=== PATIENT | male | born 1935 | race Caucasian/White ===

== ENCOUNTER 2023-01-22 11:53 | Inpatient (IN) | payer MEDICARE, BC ==
[2023-01-22] MEDS ORDERED: Acetaminophen W/ Codeine 5 ML UDCUP PER TUBE PRN (13:04)
[2023-01-22] MEDS ORDERED: Cyclobenzaprine 10 MG TAB PO PRN (13:04)
[2023-01-22] MEDS ORDERED: Potassium Chloride 20 MEQ TAB PO PRN (13:04)
[2023-01-22] MEDS ORDERED: Ondansetron ODT 4 MG TAB PO PRN (18:23)
[2023-01-22] MEDS ORDERED: Prochlorperazine Maleate 5 MG TAB PO PRN (18:23)
[2023-01-22] MEDS: Famotidine 20 MG TAB PER TUBE SCH (20:40)
[2023-01-22] MEDS: Acetaminophen 325 MG TAB PER TUBE PRN (20:45)
[2023-01-22] MEDS ORDERED: clonazePAM 1 MG TAB PO SCH (21:00)
[2023-01-22] MEDS ORDERED: Apixaban 5 MG TAB PO SCH (21:00)
[2023-01-22] MEDS ORDERED: Carvedilol 6.25 MG TAB PO SCH (21:00)
[2023-01-22] MEDS: Melatonin 3 MG TAB PER TUBE PRN (22:14)
[2023-01-22] MEDS: Acetaminophen/Codeine 30-300mg Tablet PER TUBE PRN (23:21)
[2023-01-23] MEDS: traMADol HCl 50 MG TAB PER TUBE PRN ×2 (01:47→10:34)
[2023-01-23] MEDS ORDERED: Ondansetron ODT 4 MG TAB PER TUBE PRN (02:14)
[2023-01-23] MEDS ORDERED: Prochlorperazine Maleate 5 MG TAB PER TUBE PRN (02:14)
[2023-01-23] MEDS: Levothyroxine Sodium 75 MCG TAB PER TUBE SCH (05:40)
[2023-01-23 05:50] LABS: #Basophils 0.1 thou/uL (0.0-0.2); #Eosinphils 0.1 thou/uL (0.0-0.7); #Lymphocytes 0.4 thou/uL (1.20-3.40); #Monocytes 0.8 thou/uL (0.11-0.59); #Neutrophils 5.9 thou/uL (1.40-6.50); %Basophils 1.4 % (0.0-1.0); %Lymphocytes 4.9 % (21.0-51.0); %Monocytes 11.3 % (0.0-10.0); %Neutrophils 80.4 % (42.0-75.0); Hemoglobin 9.3 g/dL (14.0-18.0); Mean Corpuscular HGB CONC 32.5 g/dL (32.0-36.0); Mean Corpuscular Hemoglobin 33.9 pg (27.0-31.0); Mean Platelet Volume 7.3 fL (7.4-10.4); Platelet Count 98 10x3/uL (130-400); RBC Distribution Width 14.2 % (11.5-14.5); Red Blood Cell (RBC) Count 2.75 mill/uL (4.70-6.10); White Blood Cell (WBC) Count 7.4 10x3/uL (4.8-10.8)
[2023-01-23] MEDS ORDERED: Levothyroxine Sodium 75 MCG TAB PO SCH (06:00)
[2023-01-23 06:01] LABS: ALT (SGPT) 21 U/L (8-55); AST (SGOT) 18 U/L (5-34); Albumin 2.6 g/dL (3.4-4.8); Alkaline Phosphatase 102 U/L (40-110); Anion Gap 14 mmol/L (10-20); BUN (Urea Nitrogen) 21 mg/dL (8.4-25.7); Bilirubin, Total 0.7 mg/dL (0.2-1.2); Calc. Creatinine Clearance 95 mL/min (70-130); Calcium 8.2 mg/dL (7.8-10.44); Carbon Dioxide 22 mmol/L (23-31); Chloride 103 mmol/L (98-107); Estimated GFR 95; Globulin 2.1 g/dL (2.4-3.5); Glucose 122 mg/dL (83-110); Potassium 3.9 mmol/L (3.5-5.1); Protein, Total 4.7 g/dL (5.8-8.1); Sodium 135 mmol/L (136-145)
[2023-01-23] MEDS ORDERED: Liothyronine Sodium 5 MCG TAB PO SCH (09:00)
[2023-01-23] MEDS ORDERED: Haloperidol 1 MG TAB PO SCH (09:00)
[2023-01-23] MEDS ORDERED: Polyethylene Glycol 3350 17 GM Packet PO SCH (09:00)
[2023-01-23] MEDS: Apixaban 5 MG TAB PER TUBE SCH ×2 (09:29→21:10)
[2023-01-23] MEDS: Carvedilol 6.25 MG TAB PER TUBE SCH ×2 (09:30→21:11)
[2023-01-23] MEDS: Famotidine 20 MG TAB PER TUBE SCH ×2 (09:35→21:10)
[2023-01-23] MEDS: Haloperidol 1 MG TAB PER TUBE SCH (09:36)
[2023-01-23] MEDS: Liothyronine Sodium 5 MCG TAB PER TUBE SCH (09:36)
[2023-01-23] MEDS: Polyethylene Glycol 3350 17 GM Packet PER TUBE SCH (09:37)
[2023-01-23] MEDS: Acetaminophen/Codeine 30-300mg Tablet PER TUBE PRN (14:01)
[2023-01-23] MEDS ORDERED: Atorvastatin Calcium 40 MG TAB PO SCH (21:00)
[2023-01-23] MEDS: Cyclobenzaprine 10 MG TAB PER TUBE PRN (21:10)
[2023-01-23] MEDS: clonazePAM 1 MG TAB PER TUBE SCH (21:10)
[2023-01-23] MEDS: Melatonin 3 MG TAB PER TUBE PRN (21:10)
[2023-01-23] MEDS: Atorvastatin Calcium 40 MG TAB PER TUBE SCH (21:16)
[2023-01-24] MEDS: Acetaminophen/Codeine 30-300mg Tablet PER TUBE PRN ×2 (00:04→05:40)
[2023-01-24] MEDS: Levothyroxine Sodium 75 MCG TAB PER TUBE SCH (05:41)
[2023-01-24] MEDS: Carvedilol 6.25 MG TAB PER TUBE SCH ×2 (08:17→20:42)
[2023-01-24] MEDS: Apixaban 5 MG TAB PER TUBE SCH ×2 (08:37→20:42)
[2023-01-24] MEDS: Famotidine 20 MG TAB PER TUBE SCH ×2 (08:37→20:42)
[2023-01-24] MEDS: Polyethylene Glycol 3350 17 GM Packet PER TUBE SCH (08:37)
[2023-01-24] MEDS: Liothyronine Sodium 5 MCG TAB PER TUBE SCH (08:37)
[2023-01-24] MEDS: Haloperidol 1 MG TAB PER TUBE SCH (08:39)
[2023-01-24] MEDS ORDERED: Sodium Chloride 0.9% 1,000 ML IV SCH (10:15)
[2023-01-24] MEDS ORDERED: Carvedilol 6.25 MG TAB PER TUBE SCH ×2 (11:59→12:30)
[2023-01-24] MEDS: traMADol HCl 50 MG TAB PER TUBE PRN ×2 (13:03→20:40)
[2023-01-24] MEDS: Melatonin 3 MG TAB PER TUBE PRN (20:40)
[2023-01-24] MEDS: clonazePAM 1 MG TAB PER TUBE SCH (20:41)
[2023-01-24] MEDS: Cyclobenzaprine 10 MG TAB PER TUBE PRN (20:42)
[2023-01-25] MEDS: Levothyroxine Sodium 75 MCG TAB PER TUBE SCH (06:11)
[2023-01-25] MEDS: traMADol HCl 50 MG TAB PER TUBE PRN ×2 (06:11→14:37)
[2023-01-25] MEDS: Famotidine 20 MG TAB PER TUBE SCH ×2 (08:34→20:43)
[2023-01-25] MEDS: Apixaban 5 MG TAB PER TUBE SCH ×2 (08:34→20:44)
[2023-01-25] MEDS: Liothyronine Sodium 5 MCG TAB PER TUBE SCH (08:34)
[2023-01-25] MEDS: Polyethylene Glycol 3350 17 GM Packet PER TUBE SCH (08:34)
[2023-01-25] MEDS: Haloperidol 1 MG TAB PER TUBE SCH (08:34)
[2023-01-25] MEDS: Carvedilol 6.25 MG TAB PER TUBE SCH ×2 (08:35→20:40)
[2023-01-25] MEDS: Atorvastatin Calcium 40 MG TAB PER TUBE SCH (20:43)
[2023-01-25] MEDS: DARIDOREXANT HCL PO SCH (20:44)
[2023-01-25] MEDS: clonazePAM 1 MG TAB PER TUBE SCH (20:44)
[2023-01-26] MEDS: traMADol HCl 50 MG TAB PER TUBE PRN ×3 (02:44→20:48)
[2023-01-26] MEDS: Levothyroxine Sodium 75 MCG TAB PER TUBE SCH (05:57)
[2023-01-26 06:14] LABS: #Basophils 0.1 thou/uL (0.0-0.2); #Eosinphils 0.1 thou/uL (0.0-0.7); #Lymphocytes 0.3 thou/uL (1.20-3.40); #Monocytes 1.2 thou/uL (0.11-0.59); #Neutrophils 7.3 thou/uL (1.40-6.50); %Basophils 1.3 % (0.0-1.0); %Eosinophils 1.6 % (0.0-10.0); %Lymphocytes 3.6 % (21.0-51.0); %Monocytes 13.6 % (0.0-10.0); Hemoglobin 9.3 g/dL (14.0-18.0); Mean Corpuscular HGB CONC 32.3 g/dL (32.0-36.0); Mean Platelet Volume 6.6 fL (7.4-10.4); Platelet Count 160 10x3/uL (130-400); RBC Distribution Width 14.6 % (11.5-14.5); Red Blood Cell (RBC) Count 2.74 mill/uL (4.70-6.10); White Blood Cell (WBC) Count 9.1 10x3/uL (4.8-10.8)
[2023-01-26 06:16] LABS: Anion Gap 14 mmol/L (10-20); BUN (Urea Nitrogen) 20 mg/dL (8.4-25.7); Calc. Creatinine Clearance 105 mL/min (70-130); Calcium 8.4 mg/dL (7.8-10.44); Carbon Dioxide 23 mmol/L (23-31); Chloride 99 mmol/L (98-107); Estimated GFR 97; Glucose 95 mg/dL (83-110); Potassium 4.6 mmol/L (3.5-5.1); Sodium 131 mmol/L (136-145)
[2023-01-26] MEDS: Carvedilol 6.25 MG TAB PER TUBE SCH ×2 (07:19→20:47)
[2023-01-26] MEDS: Polyethylene Glycol 3350 17 GM Packet PER TUBE SCH (07:20)
[2023-01-26] MEDS: Famotidine 20 MG TAB PER TUBE SCH ×2 (07:20→20:46)
[2023-01-26] MEDS: Liothyronine Sodium 5 MCG TAB PER TUBE SCH (07:20)
[2023-01-26] MEDS: Haloperidol 1 MG TAB PER TUBE SCH (07:20)
[2023-01-26] MEDS: Acetaminophen/Codeine 30-300mg Tablet PER TUBE PRN ×2 (07:21→13:58)
[2023-01-26] MEDS: Apixaban 5 MG TAB PER TUBE SCH ×2 (07:21→20:47)
[2023-01-26] MEDS: Cyclobenzaprine 10 MG TAB PER TUBE PRN (10:08)
[2023-01-26] MEDS ORDERED: Senokot S 8.6-50 MG TAB PO PRN (17:29)
[2023-01-26] MEDS: clonazePAM 1 MG TAB PER TUBE SCH (20:46)
[2023-01-26] MEDS: DARIDOREXANT HCL PO SCH (20:47)
[2023-01-27] MEDS: traMADol HCl 50 MG TAB PER TUBE PRN ×3 (05:55→17:41)
[2023-01-27] MEDS: Levothyroxine Sodium 75 MCG TAB PER TUBE SCH (05:55)
[2023-01-27] MEDS: Famotidine 20 MG TAB PER TUBE SCH ×2 (08:39→20:26)
[2023-01-27] MEDS: Polyethylene Glycol 3350 17 GM Packet PER TUBE SCH (08:39)
[2023-01-27] MEDS: Haloperidol 1 MG TAB PER TUBE SCH (08:39)
[2023-01-27] MEDS: Liothyronine Sodium 5 MCG TAB PER TUBE SCH (08:39)
[2023-01-27] MEDS: Acetaminophen/Codeine 30-300mg Tablet PER TUBE PRN ×2 (08:40→14:47)
[2023-01-27] MEDS: Apixaban 5 MG TAB PER TUBE SCH ×2 (08:40→20:25)
[2023-01-27] MEDS: Carvedilol 6.25 MG TAB PER TUBE SCH ×2 (08:41→20:26)
[2023-01-27] MEDS: clonazePAM 1 MG TAB PER TUBE SCH (20:25)
[2023-01-27] MEDS: DARIDOREXANT HCL PO SCH (20:26)
[2023-01-27] MEDS: Atorvastatin Calcium 40 MG TAB PER TUBE SCH (20:27)
[2023-01-28] MEDS: Melatonin 3 MG TAB PER TUBE PRN ×2 (01:19→23:07)
[2023-01-28] MEDS: traMADol HCl 50 MG TAB PER TUBE PRN ×2 (01:19→21:00)
[2023-01-28] MEDS: Levothyroxine Sodium 75 MCG TAB PER TUBE SCH (05:56)
[2023-01-28 06:43] LABS: Anion Gap 13 mmol/L (10-20); BUN (Urea Nitrogen) 20 mg/dL (8.4-25.7); Calc. Creatinine Clearance 96 mL/min (70-130); Calcium 8.4 mg/dL (7.8-10.44); Carbon Dioxide 26 mmol/L (23-31); Chloride 96 mmol/L (98-107); Estimated GFR 94; Glucose 95 mg/dL (83-110); Potassium 4.6 mmol/L (3.5-5.1); Sodium 130 mmol/L (136-145)
[2023-01-28] MEDS: Polyethylene Glycol 3350 17 GM Packet PER TUBE SCH (09:10)
[2023-01-28] MEDS: Acetaminophen/Codeine 30-300mg Tablet PER TUBE PRN ×2 (09:10→15:48)
[2023-01-28] MEDS: Haloperidol 1 MG TAB PER TUBE SCH (09:11)
[2023-01-28] MEDS: Liothyronine Sodium 5 MCG TAB PER TUBE SCH (09:11)
[2023-01-28] MEDS: Famotidine 20 MG TAB PER TUBE SCH ×2 (09:11→20:53)
[2023-01-28] MEDS: Apixaban 5 MG TAB PER TUBE SCH ×2 (09:11→20:56)
[2023-01-28] MEDS: Carvedilol 6.25 MG TAB PER TUBE SCH ×2 (09:13→20:56)
[2023-01-28] MEDS: clonazePAM 1 MG TAB PER TUBE SCH (20:54)
[2023-01-28] MEDS: Fluticasone Propionate Nasal Spray 16 gm Bottle NASAL SCH (20:57)
[2023-01-28] MEDS: DARIDOREXANT HCL PO SCH (20:57)
[2023-01-29] MEDS: Acetaminophen/Codeine 30-300mg Tablet PER TUBE PRN ×2 (00:24→07:52)
[2023-01-29] MEDS: traMADol HCl 50 MG TAB PER TUBE PRN ×2 (04:04→11:08)
[2023-01-29] MEDS: Cyclobenzaprine 10 MG TAB PER TUBE PRN ×3 (04:04→20:58)
[2023-01-29] MEDS: Levothyroxine Sodium 75 MCG TAB PER TUBE SCH (05:56)
[2023-01-29 06:09] LABS: Anion Gap 16 mmol/L (10-20); BUN (Urea Nitrogen) 20 mg/dL (8.4-25.7); Calc. Creatinine Clearance 94 mL/min (70-130); Calcium 8.7 mg/dL (7.8-10.44); Carbon Dioxide 23 mmol/L (23-31); Chloride 95 mmol/L (98-107); Estimated GFR 94; Glucose 116 mg/dL (83-110); Potassium 4.4 mmol/L (3.5-5.1); Sodium 130 mmol/L (136-145)
[2023-01-29] MEDS: Polyethylene Glycol 3350 17 GM Packet PER TUBE SCH (07:50)
[2023-01-29] MEDS: Carvedilol 6.25 MG TAB PER TUBE SCH ×2 (07:51→20:59)
[2023-01-29] MEDS: Famotidine 20 MG TAB PER TUBE SCH ×2 (07:51→20:58)
[2023-01-29] MEDS: Haloperidol 1 MG TAB PER TUBE SCH (07:51)
[2023-01-29] MEDS: Apixaban 5 MG TAB PER TUBE SCH ×2 (07:51→20:58)
[2023-01-29] MEDS: Liothyronine Sodium 5 MCG TAB PER TUBE SCH (07:51)
[2023-01-29] MEDS: Fluticasone Propionate Nasal Spray 16 gm Bottle NASAL SCH (20:51)
[2023-01-29] MEDS: Acetaminophen 325 MG TAB PER TUBE PRN (20:55)
[2023-01-29] MEDS: clonazePAM 1 MG TAB PER TUBE SCH (20:58)
[2023-01-29] MEDS: Atorvastatin Calcium 40 MG TAB PER TUBE SCH (21:20)
[2023-01-29] MEDS: DARIDOREXANT HCL PO SCH (21:21)
[2023-01-30] MEDS: Levothyroxine Sodium 75 MCG TAB PER TUBE SCH (05:42)
[2023-01-30] MEDS: HYDROcodone/Acetaminophen 5/325 mg Tablet PO PRN (08:26)
[2023-01-30] MEDS: Polyethylene Glycol 3350 17 GM Packet PER TUBE SCH (09:07)
[2023-01-30] MEDS: Apixaban 5 MG TAB PER TUBE SCH ×2 (09:07→20:30)
[2023-01-30] MEDS: Liothyronine Sodium 5 MCG TAB PER TUBE SCH (09:07)
[2023-01-30] MEDS: Carvedilol 6.25 MG TAB PER TUBE SCH ×2 (09:07→20:32)
[2023-01-30] MEDS: Haloperidol 1 MG TAB PER TUBE SCH (09:07)
[2023-01-30] MEDS: Famotidine 20 MG TAB PER TUBE SCH ×2 (09:07→20:30)
[2023-01-30] MEDS: Fluticasone Propionate Nasal Spray 16 gm Bottle NASAL SCH (20:28)
[2023-01-30] MEDS: traMADol HCl 50 MG TAB PER TUBE PRN (20:30)
[2023-01-30] MEDS: Cyclobenzaprine 10 MG TAB PER TUBE PRN (20:30)
[2023-01-30] MEDS: clonazePAM 1 MG TAB PER TUBE SCH (20:30)
[2023-01-30] MEDS: DARIDOREXANT HCL PO SCH (20:53)
[2023-01-31 04:09] VITALS: BMI 23.6
[2023-01-31] MEDS: Levothyroxine Sodium 75 MCG TAB PER TUBE SCH (05:48)
[2023-01-31] MEDS: traMADol HCl 50 MG TAB PER TUBE PRN (05:52)
[2023-01-31 06:18] LABS: Anion Gap 14 mmol/L (10-20); BUN (Urea Nitrogen) 23 mg/dL (8.4-25.7); Calc. Creatinine Clearance 99 mL/min (70-130); Calcium 8.3 mg/dL (7.8-10.44); Carbon Dioxide 23 mmol/L (23-31); Chloride 96 mmol/L (98-107); Estimated GFR 95; Glucose 107 mg/dL (83-110); Potassium 4.6 mmol/L (3.5-5.1); Sodium 128 mmol/L (136-145)
[2023-01-31 06:28] LABS: #Basophils 0.2 thou/uL (0.0-0.2); #Eosinphils 0.1 thou/uL (0.0-0.7); #Lymphocytes 0.6 thou/uL (1.20-3.40); #Monocytes 1.2 thou/uL (0.11-0.59); #Neutrophils 9.7 thou/uL (1.40-6.50); %Basophils 1.4 % (0.0-1.0); %Eosinophils 0.5 % (0.0-10.0); %Lymphocytes 4.9 % (21.0-51.0); %Monocytes 10.3 % (0.0-10.0); %Neutrophils 82.9 % (42.0-75.0); Hemoglobin 8.6 g/dL (14.0-18.0); Mean Corpuscular HGB CONC 32.1 g/dL (32.0-36.0); Mean Corpuscular Hemoglobin 33.6 pg (27.0-31.0); Mean Platelet Volume 6.4 fL (7.4-10.4); Platelet Count 194 10x3/uL (130-400); RBC Distribution Width 14.7 % (11.5-14.5); Red Blood Cell (RBC) Count 2.57 mill/uL (4.70-6.10); White Blood Cell (WBC) Count 11.7 10x3/uL (4.8-10.8)
[2023-01-31] MEDS: Liothyronine Sodium 5 MCG TAB PER TUBE SCH (09:05)
[2023-01-31] MEDS: Apixaban 5 MG TAB PER TUBE SCH (09:05)
[2023-01-31] MEDS: Polyethylene Glycol 3350 17 GM Packet PER TUBE SCH (09:05)
[2023-01-31] MEDS: Haloperidol 1 MG TAB PER TUBE SCH (09:05)
[2023-01-31] MEDS: Cyclobenzaprine 10 MG TAB PER TUBE PRN ×2 (09:06→16:12)
[2023-01-31] MEDS: Famotidine 20 MG TAB PER TUBE SCH (09:06)
[2023-01-31] MEDS: Carvedilol 6.25 MG TAB PER TUBE SCH (09:06)
[2023-01-31] MEDS: HYDROcodone/Acetaminophen 5/325 mg Tablet PO PRN (12:01)
[2023-01-31 17:56] LABS: Bilirubin Negative (Negative); Blood, Urine Negative (Negative); Clarity Clear (Clear); Glucose, Urine (Dipstick) Negative (Negative); Ketone, Urine Negative (Negative); Leukocyte Negative (Negative); Nitrite Negative (Negative); Protein, Urine (Dipstick) Trace mg/dL (Neg-Trace); Specific Gravity, Urine 1.015 (1.005-1.030)
[2023-01-31 17:57] LABS: Bacteria/HPF None Seen HPF (None Seen); RBC/HPF None Seen HPF (0-3); Squamous Epithelial None Seen HPF (0-3); WBC/HPF None Seen HPF (0-3)
[2023-01-31 21:07] VITALS: TEMP 100.7
[2023-01-31 21:37] VITALS: BP 80/58
== END 2023-01-31 18:58 | disposition critical access hospital (66) | DRG 560 ==
LOC: NAV ACUTE 17:48
PROVIDERS: ADMIT Family Medicine; ATTEND Family Medicine
DX: S72.141D Displaced intertrochanteric fracture of right femur, subsequent encounter for closed fracture with routine healing (principal); E87.1 Hypo-osmolality and hyponatremia; F03.918 Unspecified dementia, unspecified severity, with other behavioral disturbance; G47.00 Insomnia, unspecified; I48.91 Unspecified atrial fibrillation; I25.10 Atherosclerotic heart disease of native coronary artery without angina pectoris; I10 Essential (primary) hypertension; E78.5 Hyperlipidemia, unspecified; K21.9 Gastro-esophageal reflux disease without esophagitis; E03.9 Hypothyroidism, unspecified; R41.0 Disorientation, unspecified; M10.9 Gout, unspecified; M19.90 Unspecified osteoarthritis, unspecified site; W19.XXXD Unspecified fall, subsequent encounter; D69.6 Thrombocytopenia, unspecified; D72.829 Elevated white blood cell count, unspecified; I95.9 Hypotension, unspecified; Z95.5 Presence of coronary angioplasty implant and graft; Z95.0 Presence of cardiac pacemaker; Z90.49 Acquired absence of other specified parts of digestive tract; Z85.01 Personal history of malignant neoplasm of esophagus; Z98.890 Other specified postprocedural states
CPT/HCPCS: 36415; 71045; 80048; 80053; 81001; 85025; 87086; J7050; Q0162

== ENCOUNTER 2023-01-31 19:09 | Emergency (ER) | payer MEDICARE, BC ==
[2023-01-31] MEDS ORDERED: Digoxin 0.5 MG/2 ML AMP ONE ×2 (19:24→21:58)
[2023-01-31] MEDS ORDERED: Sodium Chloride 0.9% 500 ML ONE (19:25)
[2023-01-31 19:31] LABS: Hemoglobin 9.4 g/dL (14.0-18.0); Mean Corpuscular HGB CONC 32.6 g/dL (32.0-36.0); Mean Corpuscular Hemoglobin 34.2 pg (27.0-31.0); Mean Platelet Volume 6.2 fL (7.4-10.4); Platelet Count 186 10x3/uL (130-400); RBC Distribution Width 14.2 % (11.5-14.5); Red Blood Cell (RBC) Count 2.74 mill/uL (4.70-6.10)
[2023-01-31 19:32] LABS: MDiff Complete? YES; Manual Diff?? YES
[2023-01-31 19:36] LABS: Chloride 88 mmol/L (98-107); Potassium 4.7 mmol/L (3.5-5.1)
[2023-01-31] MEDS ORDERED: Acetaminophen 650 MG Suppository ONE (19:36)
[2023-01-31] MEDS ORDERED: Pantoprazole 40 MG VIAL ONE (19:36)
[2023-01-31] MEDS ORDERED: Acetaminophen 325 MG Suppository ONE (19:36)
[2023-01-31 19:46] LABS: Lymphocytes 4 % (21-51); Macrocytosis SLIGHT = 6-15 cells (100X) (0-5/hpf); Monocytes 4 % (0-10); Neutrophil 91 % (42-75); Reactive Lymphocytes 1 % (0-10)
[2023-01-31 19:47] LABS: Anisocytosis SLIGHT = 6-15 cells (100X) (0-5/hpf)
[2023-01-31 19:48] LABS: Platelet Adequacy Comment Appears Adequate; Vacuoles SLIGHT
[2023-01-31] MEDS ORDERED: Cefepime 2 GM VIAL ONE (20:01)
[2023-01-31] MEDS ORDERED: fentaNYL 50 mcg/mL 1 mL Vial ONE ×2 (20:01→22:06)
[2023-01-31] MEDS ORDERED: Sodium Chloride 0.9% 100 ML ONE (20:01)
[2023-01-31 20:03] LABS: ALT (SGPT) 22 U/L (8-55); AST (SGOT) 25 U/L (5-34); Albumin 2.5 g/dL (3.4-4.8); Alkaline Phosphatase 145 U/L (40-110); BUN (Urea Nitrogen) 23 mg/dL (8.4-25.7); Bilirubin, Total 0.9 mg/dL (0.2-1.2); Calc. Creatinine Clearance 0 mL/min (70-130); Calcium 7.9 mg/dL (7.8-10.44); Carbon Dioxide 23 mmol/L (23-31); Estimated GFR 92; Globulin 2.6 g/dL (2.4-3.5); Glucose 159 mg/dL (83-110); Protein, Total 5.1 g/dL (5.8-8.1)
[2023-01-31 20:08] LABS: Lipase Less than 0 U/L (8-78); Sodium 117 mmol/L (136-145)
[2023-01-31 20:19] LABS: Anion Gap 1 mmol/L (10-20)
[2023-01-31] MEDS ORDERED: Sodium Chloride 0.9% 250 ML 250 ML ONE ×2 (20:19→21:49)
[2023-01-31] MEDS ORDERED: Vancomycin 1 GM VIAL ONE (20:19)
[2023-01-31] MEDS ORDERED: Sodium Chloride 0.9% 1,000 ML ONE (20:19)
[2023-01-31] MEDS ORDERED: Sterile Water 0 ML ONE (20:22)
[2023-01-31] MEDS ORDERED: Sterile Water 40 ML ONE (20:24)
[2023-01-31 21:58] LABS: SARS-CoV-2 NAA Rapid Test Not Detected (NotDetected)
== END 2023-01-31 22:25 | disposition short-term general hospital (02) ==
LOC: NAV ERS 19:09
DX: E87.1 Hypo-osmolality and hyponatremia (principal); I48.20 Chronic atrial fibrillation, unspecified; Z20.822 Contact with and (suspected) exposure to COVID-19; I25.10 Atherosclerotic heart disease of native coronary artery without angina pectoris; K21.9 Gastro-esophageal reflux disease without esophagitis; E78.00 Pure hypercholesterolemia, unspecified; I10 Essential (primary) hypertension; Z79.899 Other long term (current) drug therapy
CPT/HCPCS: 0240U; 83605; 83690; 84484; 87040; 93005; 96365; 96366; 96375; 96376; 99285; J3010; 36415; 84443; C9113; J0692; J1160; J3370; J3490; J7030; J7050